=== PATIENT | male | born 1945 | race Caucasian/White ===

== ENCOUNTER 2018-08-29 17:08 | Inpatient (IN) | payer MEDICARE ==
[~2018-08-29] VITALS: Ht 170.2 cm; Wt 72.1 kg
--- NOTE | 2018-08-29 17:52 | NUR ---
Report received from JANA Barnett, patient care assumed at this time, VSS and patient safe in bed in no acute distress. Chart reviewed, call light in reach.
--- NOTE | 2018-08-29 19:05 | NUR ---
REPORT FROM JHONATHAN BATES.
--- NOTE | 2018-08-29 19:14 | NUR ---
PT REQUESTING PAIN MEDS, NOTIFIED. PT TO HAVE MORPHINE.
[2018-08-29] MEDS ORDERED: MORPHINE SULFATE 4 MG/ML, 1ML ONE (19:17)
--- NOTE | 2018-08-29 19:25 | NUR ---
[facility] TO BEDSIDE FOR EVAL. PT TO HAVE PAIN MEDS WHEN MD COMPLETE.
[2018-08-29] MEDS ORDERED: MORPHINE SULFATE 4 MG/ML, 1ML IVPush PRN (19:30)
--- NOTE | 2018-08-29 19:31 | NUR ---
PT RECIEVED MED PER ORDERS, SEE EMAR. PT TO XRAY VIA OLVIN.
--- NOTE | 2018-08-29 19:45 | NUR ---
PT RETURN FROM IMAGING. VSS. PT RESTING IN BED, SUPINE. APPEARS COMFORTABLE. BREATHING E/U.
--- NOTE | 2018-08-29 19:55 | NUR ---
REPORT TO ARMANI BATES. PT TO GO TO ROOM.
[2018-08-29] MEDS ORDERED: ONDANSETRON ODT 4 MG PO PRN (20:00)
[2018-08-29] MEDS ORDERED: BISACODYL 10 MG SUPP PR PRN (20:00)
[2018-08-29 20:12] VITALS: BP 113/74
[2018-08-29] MEDS: SODIUM CHLORIDE 0.9% 1,000 ML IV SCH (22:48)
[2018-08-29] MEDS: SODIUM CHLORIDE FLUSH 10ML SYR IVF SCH (22:49)
[2018-08-30 00:22] VITALS: BP 107/72
[2018-08-30 04:54] LABS: BASOPHILS # (AUTO) 0.02 x10^3/uL (0-0.1); BASOPHILS % (AUTO) 0 % (0-1); EOSINOPHILS # (AUTO) 0.04 x10^3/uL (0-0.4); EOSINOPHILS % (AUTO) 0 % (1-7); LYMPHOCYTES # (AUTO) 0.93 x10^3/uL (1-3.4); LYMPHOCYTES % (AUTO) 11 % (22-44); MD NO; MEAN CORPUSCULAR HEMOGLOBIN 30.4 pg (27.5-34.5); MEAN CORPUSCULAR HGB CONC 33.8 g/dL (33.2-36.2); MEAN CORPUSCULAR VOLUME 90.1 fL (81-97); MEAN PLATELET VOLUME 8.3 fL (7.4-10.4); MONOCYTES # (AUTO) 0.72 x10^3/uL (0.2-0.8); MONOCYTES % (AUTO) 9 % (2-9); NEUTROPHILS # (AUTO) 6.66 x10^3/uL (1.8-6.8); NEUTROPHILS % (AUTO) 80 % (42-75); PLATELET COUNT 173 x10^3/uL (130-400); RED BLOOD COUNT 4.31 x10^6/uL (4.38-5.82)
[2018-08-30 05:01] LABS: ALBUMIN 2.7 g/dL (3.4-5.0); ANION GAP 7 mmol/L (5-15); CALCIUM 7.9 mg/dL (8.5-10.1); CHLORIDE 111 mmol/L (98-107)
[2018-08-30 05:05] LABS: ALANINE AMINOTRANSFERASE 15 U/L (12-78); ALKALINE PHOSPHATASE 77 U/L (45-117); BILIRUBIN,TOTAL 0.9 mg/dL (0.2-1.0); CREATININE 0.85 mg/dL (0.7-1.3); TOTAL PROTEIN 6.1 g/dL (6.4-8.2)
[2018-08-30] MEDS: morphine SULFATE 10 MG/ML, 1ML IVPush PRN ×2 (05:30→20:37)
[2018-08-30] MEDS: SODIUM CHLORIDE 0.9% 1,000 ML IV SCH ×2 (06:50→17:09)
[2018-08-30 08:00] VITALS: BP 109/72
[2018-08-30] MEDS: SODIUM CHLORIDE FLUSH 10ML SYR IVF SCH ×2 (09:00→20:37)
[2018-08-30] MEDS: SENNA/DOCUSATE TABLET PO SCH (09:00)
[2018-08-30 12:00] VITALS: BP 117/73
[2018-08-30 18:36] VITALS: BP 114/71
[2018-08-31 00:31] VITALS: BP 118/68
[2018-08-31] MEDS: SODIUM CHLORIDE 0.9% 1,000 ML IV SCH ×2 (04:32→18:43)
[2018-08-31 06:29] VITALS: BP 127/76
[2018-08-31] MEDS: SENNA/DOCUSATE TABLET PO SCH (07:58)
[2018-08-31] MEDS: SODIUM CHLORIDE FLUSH 10ML SYR IVF SCH ×2 (08:00→19:24)
[2018-08-31] MEDS ORDERED: NEOSPORIN OINT, 15GM ONE (09:24)
[2018-08-31] MEDS ORDERED: hydrALAzine 20 MG/ML, 1ML IV PRN (09:30)
[2018-08-31] MEDS ORDERED: OXYcodone 5 MG/5 ML ORAL.SOL UDC PO PRN (09:30)
[2018-08-31] MEDS ORDERED: FENTANYL PF 100 MCG/2ML IV PRN (09:30)
[2018-08-31] MEDS ORDERED: HYDROmorphone 2 MG/ML, 1ML IVPush PRN (09:30)
[2018-08-31] MEDS ORDERED: MEPERIDINE/PF 25MG/0.5ML IVPush PRN (09:30)
[2018-08-31] MEDS ORDERED: HALOPERIDOL 5 MG/ML IV PRN (09:30)
[2018-08-31] MEDS ORDERED: FENTANYL PF 250 MCG/5ML ONE (09:31)
[2018-08-31] MEDS ORDERED: PROPOFOL 10 MG/ML, 20ML ONE (09:31)
[2018-08-31] MEDS ORDERED: LIDOCAINE-MPF 2% ,5ML ONE ×2 (09:31)
[2018-08-31] MEDS ORDERED: PHENYLEPHRINE 10 MG/ML ONE (09:35)
[2018-08-31] MEDS ORDERED: ONDANSETRON 2MG/ML, 2ML ONE (09:35)
[2018-08-31] MEDS ORDERED: DEXAMETHASONE 4 MG/ML, 1ML ONE (09:35)
[2018-08-31] MEDS ORDERED: ROCURONIUM 10MG/ML,5ML ONE (09:42)
[2018-08-31] MEDS ORDERED: TRANEXAMIC ACID 100 MG/ML, 10ML ONE (10:46)
[2018-08-31] MEDS ORDERED: OXYcodone 5 MG/5 ML ORAL.SOL UDC ONE (11:21)
[2018-08-31] MEDS ORDERED: FENTANYL PF 100 MCG/2ML ONE (11:21)
[2018-08-31 14:10] VITALS: BP 125/78
[2018-08-31] MEDS: CEFAZOLIN PMX 1GM/50ML 50 ML IVPB SCH (18:42)
[2018-08-31 20:15] VITALS: BP 121/71
[2018-08-31] MEDS: ACETAMINOPHEN 325 MG TABLET PO PRN (22:55)
[2018-09-01 01:33] VITALS: BP 94/57
[2018-09-01] MEDS: CEFAZOLIN PMX 1GM/50ML 50 ML IVPB SCH (02:02)
[2018-09-01] MEDS: ACETAMINOPHEN 325 MG TABLET PO PRN ×2 (05:37→21:06)
[2018-09-01] MEDS: ENOXAPARIN 40 MG/0.4 ML SQ SCH (05:37)
[2018-09-01] MEDS: SODIUM CHLORIDE 0.9% 1,000 ML IV SCH (05:37)
[2018-09-01 06:37] VITALS: BP 101/64
[2018-09-01 09:13] LABS: ALBUMIN 2.4 g/dL (3.4-5.0); ANION GAP 6 mmol/L (5-15); CALCIUM 8.3 mg/dL (8.5-10.1); CHLORIDE 109 mmol/L (98-107); CREATININE 0.79 mg/dL (0.7-1.3)
[2018-09-01 09:26] LABS: BASOPHILS # (AUTO) 0.03 x10^3/uL (0-0.1); BASOPHILS % (AUTO) 0 % (0-1); EOSINOPHILS # (AUTO) 0.09 x10^3/uL (0-0.4); EOSINOPHILS % (AUTO) 1 % (1-7); LYMPHOCYTES # (AUTO) 0.84 x10^3/uL (1-3.4); LYMPHOCYTES % (AUTO) 9 % (22-44); MD NO; MEAN CORPUSCULAR HEMOGLOBIN 29.7 pg (27.5-34.5); MEAN CORPUSCULAR HGB CONC 32.8 g/dL (33.2-36.2); MEAN CORPUSCULAR VOLUME 90.6 fL (81-97); MEAN PLATELET VOLUME 8.1 fL (7.4-10.4); MONOCYTES # (AUTO) 0.99 x10^3/uL (0.2-0.8); MONOCYTES % (AUTO) 10 % (2-9); NEUTROPHILS % (AUTO) 80 % (42-75); PLATELET COUNT 158 x10^3/uL (130-400); RED BLOOD COUNT 4.04 x10^6/uL (4.38-5.82); RED CELL DISTRIBUTION WIDTH 13.7 % (9.4-14.8)
[2018-09-01] MEDS: SENNA/DOCUSATE TABLET PO SCH (10:00)
[2018-09-01] MEDS: SODIUM CHLORIDE FLUSH 10ML SYR IVF SCH ×2 (10:00→20:52)
[2018-09-01] MEDS: POLYETHYLENE GLYCOL 17 GM PACKET PO PRN (10:01)
[2018-09-01] MEDS: morphine SULFATE 10 MG/ML, 1ML IVPush PRN (10:54)
[2018-09-01 12:13] VITALS: BP 102/71
[2018-09-01 18:33] VITALS: BP 115/77
[2018-09-02 02:42] VITALS: BP 135/85
[2018-09-02] MEDS: ACETAMINOPHEN 325 MG TABLET PO PRN ×4 (03:08→21:00)
[2018-09-02] MEDS: ENOXAPARIN 40 MG/0.4 ML SQ SCH (05:31)
[2018-09-02 06:25] VITALS: BP 124/71
[2018-09-02] MEDS: SENNA/DOCUSATE TABLET PO SCH (08:59)
[2018-09-02] MEDS: POLYETHYLENE GLYCOL 17 GM PACKET PO PRN (08:59)
[2018-09-02] MEDS: SODIUM CHLORIDE FLUSH 10ML SYR IVF SCH ×2 (09:00→20:50)
[2018-09-02 11:35] VITALS: BP 97/62
[2018-09-02] MEDS ORDERED: ENOX40SY4 SQ (13:31)
[2018-09-02 19:13] VITALS: BP 104/64
[2018-09-03 02:23] VITALS: BP 113/59
[2018-09-03] MEDS: ENOXAPARIN 40 MG/0.4 ML SQ SCH (06:05)
[2018-09-03] MEDS: ACETAMINOPHEN 325 MG TABLET PO PRN ×2 (07:22→21:28)
[2018-09-03] MEDS: POLYETHYLENE GLYCOL 17 GM PACKET PO PRN (07:22)
[2018-09-03] MEDS: SENNA/DOCUSATE TABLET PO SCH (07:22)
[2018-09-03 07:45] VITALS: BP 129/80
[2018-09-03 07:50] VITALS: BP 121/77
[2018-09-03] MEDS: SODIUM CHLORIDE FLUSH 10ML SYR IVF SCH ×2 (09:00→21:28)
[2018-09-03 13:31] VITALS: BP 89/54
[2018-09-03 18:42] VITALS: BP 97/56
[2018-09-04 00:55] VITALS: BP 108/60
[2018-09-04] MEDS: ACETAMINOPHEN 325 MG TABLET PO PRN ×3 (05:18→20:09)
[2018-09-04] MEDS: ENOXAPARIN 40 MG/0.4 ML SQ SCH (05:18)
[2018-09-04 06:25] VITALS: BP 100/63
[2018-09-04] MEDS: SODIUM CHLORIDE FLUSH 10ML SYR IVF SCH ×2 (08:05→20:09)
[2018-09-04] MEDS: SENNA/DOCUSATE TABLET PO SCH (08:06)
[2018-09-04 12:39] VITALS: BP 99/63
[2018-09-04 19:13] VITALS: BP 103/68
[2018-09-05 01:14] VITALS: BP 113/64
[2018-09-05] MEDS: ENOXAPARIN 40 MG/0.4 ML SQ SCH (05:56)
[2018-09-05 06:33] VITALS: BP 117/69
[2018-09-05] MEDS: SENNA/DOCUSATE TABLET PO SCH (08:01)
[2018-09-05] MEDS: SODIUM CHLORIDE FLUSH 10ML SYR IVF SCH (08:01)
[2018-09-05 13:14] VITALS: BP 92/60
== END 2018-09-05 18:27 | DRG 469 ==
LOC: ED 17:15 → EDIP 18:25 → 4NOR 20:09
PROVIDERS: ADMIT Internal Medicine; ATTEND Internal Medicine
PROC: 0SRS0JZ Replacement of Left Hip Joint, Femoral Surface with Synthetic Substitute, Open Approach (ICD-10-PCS; principal; 2018-08-31 09:30)
DX: S72.002A Fracture of unspecified part of neck of left femur, initial encounter for closed fracture (principal); E43 Unspecified severe protein-calorie malnutrition; Z68.24 Body mass index [BMI] 24.0-24.9, adult; S01.111A Laceration without foreign body of right eyelid and periocular area, initial encounter; S01.81XA Laceration without foreign body of other part of head, initial encounter; W18.39XA Other fall on same level, initial encounter; Y93.89 Activity, other specified; Y92.89 Other specified places as the place of occurrence of the external cause; Y99.8 Other external cause status; R29.6 Repeated falls; Z87.820 Personal history of traumatic brain injury; S20.219A Contusion of unspecified front wall of thorax, initial encounter
CPT/HCPCS: 36415; 71045; 80048; 80053; 82040; 85025; 93005; 96374; G0378; J0690; J1100; J1650; J2405; J2704; J3010; J3490; C1776; J2270; J2370; J7030